=== PATIENT | male | born 1965 | race Caucasian/White ===

== ENCOUNTER 2016-09-19 11:34 | Inpatient (IN) ==
--- NOTE | 2016-09-18 20:51 | Discharge Summary ---
<Linsey White - Last Filed: 09/18/16 20:49> Date of Encounter: 09/18/16 - Discharge Diagnosis (1) Glenohumeral arthritis Priority: Primary Status: Acute Qualifiers: Laterality: left Qualified Code(s): M19.012 - Primary osteoarthritis, left shoulder - Discharge Medications Home Medications: OxyCODONE Immed Rel [Roxicodone 5 MG] 5 - 10 mg PO Q6HR PRN #40 tablet 09/18/16 [Rx] Aspirin Enteric Coated [Aspirin EC] 325 mg PO DAILY 09/19/16 [History] Fenofibrate Nanocrystallized [Tricor] 145 mg PO HS 09/19/16 [History] Niacin [Niacor] 500 mg PO BID 09/19/16 [History] Allergies/Adverse Reactions: Allergies No Known Allergies Allergy (Verified 09/19/16 12:31) Primary care physician: Camron Acevedo MD - Patient Status Disposition: Home, Self-Care Condition: Good - Discharge Instructions Follow Up With: Rohan Fraire MD [Partnered Physician] - 10/18/16 8:40 am Linsey White PAC [Physician Microbiology Lab Analyst] - 09/29/16 9:15 am Camron Acevedo MD [Primary Care Provider] - Additional Instructions: Discharge Instructions: Total Shoulder Please call [facility] ([phone]), your Primary Care Physician, or report to the Emergency Room if you have any of the following symptoms: Nausea, vomiting, fever greater that 101.5, swelling, chest pain, shortness of breath, increased pain/redness/drainage/odor for your incision site, numbness/ tingling, or any other concerning symptoms. ACTIVITY: Always keep your arm in the sling. Do not raise your arm away from your body. Do not use your arm to help with getting in or out of bed. No weight bearing permitted. Only perform those exercises given to you by your therapist. MEDICATIONS: Upon discharge resume your home medications. Take all the medications as prescribed. Take a stool softener if taking narcotic pain medications. Stool softeners are only effective if you drink enough fluids. Drink 6-8 glass of water or fluids a day, unless this is not allowed for another health problem. Despite using stool softeners, if you haven't had a bowel movement in 3 days, please switch to a gentle laxative. Gentle laxatives are sold over the counter. You should have a bowel movement within 24 hours, if not call the office. You will be discharged from the hospital with a prescription for pain medication. You are encouraged to decrease the use of narcotic pain medication as tolerated. Should you require a refill, please call the office. [facility] prescribes narcotic pain medication for only 4-6 weeks after surgery. If you require pain medication beyond this time period, you may be referred to your Primary Care Physician or to the Pain Clinic for further evaluation. Plan ahead for refills on pain medication as many narcotics either need to be picked up at the office or mailed. It is best to call 48-72 hours in advance of needing a prescription refill so you don't run out of medication. To help control the post-operative pain, you may take NSAIDs (Aleve,Advil, Motrin, ibuprofen, naprosyn) or Tylenol as prescribed on the bottle in addition to the pain medication. ANTICOAGULATION (blood thinners): Continue your Aspirin, Lovenox or Coumadin as prescribed to help prevent a blood clot in the leg or in the lungs. As long as your incision remains dry and you tolerate the NSAIDs (Aleve, Advil, Motrin, ibuprofen, naprosyn), it is OK to use the NSAIDS while you are taking your anticoagulation medication. Should your incision start to drain, stop the NSAID and contact our office. Common symptoms of blood clot in the legs include: localized pain, swelling, calf tenderness, redness or discoloration of the skin. Blood clot in the lung symptoms include: shortness of breath, rapid pulse, sweating, and chest pain that worsens with deep breathing, coughing up blood, lightheadedness, and feelings of anxiety. If you experience any of these symptoms notify your physician immediately, go to the emergency room, or if having trouble breathing , call 911. WOUND CARE: Leave the dressing on for 7 days. You may change the dressing if it becomes saturated greater than 50%. You can shower but not a tub bath or submerge your incision in water. Wash your hands with antibacterial soap, rinse and dry prior to any wound care. If you have jm the visiting nurse or rehab facility can remove the stapes 10-14 days after surgery and place steri -strips across the wound. Leave the steri-strips in place until they fall off on their won. You may let water from the shower run on top of the steri- stirips. If you do not have a visiting nurse or rehab facility, you will need to return to the office at 10-14 days for the jm to be removed. FOLLOW-UP: Please follow up with your surgeon in the orthopedic clinic, as scheduled - Hospital Course Hospital course: Mr. Collins is a 51 year old male - Time Spent with Patient Total time spent providing and/or coordinating discharge services: <Rohan Fraire - Last Filed: 09/20/16 06:34> Date of Encounter: 09/20/16 Time of Encounter: 06:33 - Discharge Diagnosis (1) Glenohumeral arthritis Priority: Primary Status: Acute Qualifiers: Laterality: left Qualified Code(s): M19.012 - Primary osteoarthritis, left shoulder (2) Obesity (BMI 30.0-34.9) Priority: Secondary Status: Chronic Primary care physician: Camron Acevedo MD - Patient Status Functional capacity at discharge: independent ambulation Overall status at discharge: patient is progressing back to baseline - Hospital Course Hospital course: Mr. Collins is a 51 year old male The patient had an uneventful postoperative course. They received antibiotics and physical therapy and were discharged in stable condition. There will follow -up in the office in 2 weeks. - Time Spent with Patient Total time spent providing and/or coordinating discharge services:
[2016-09-19] MEDS ORDERED: Famotidine 20 MG/2 ML VIAL IVP ONE (12:21)
--- NOTE | 2016-09-19 12:23 | History & Physical Report ---
Date of Encounter: 09/19/16 Time of Encounter: 12:23 24 Hour HP Update - Instructions Instructions: If the History and Physical is less than 30 days old and was completed prior to A.M. admission and or procedure and has NOT been updated on calendar day of procedure please complete this update prior to performing procedure. - Update Patient reports changes in Medical Condition: No Changes in assessment/condition: No Changes in Medication: No Preop tests/diagnostics Reviewed: Yes Surgery Remains Indicated: Yes Consent for Planned Operative Procedure(s) Verified: Yes - Pre-Operative Checklist Preoperative Checklist Indicated: No Prophylactic Antibiotic Ordered: Yes Is VTE Prophylaxis Indicated?: Yes
--- NOTE | 2016-09-19 12:23 | Anesthesia Evaluation PreOp ---
Date of Encounter: 09/19/16 Time of Encounter: 12:20 - Past History Planned Operation: Left Total Shoulder Replacement Cardiac History: Denies any Significant Hx, Other (Hx DVT) Pulmonary History: Denies Any Significant HX COMPUTING CONSULTANT History: Denies Any Significant HX Other Medical History: Other (Osteo arthritis) Anesthesia History: No Prior Anesthetic Complications Alcohol Use: none Drug use: none Medications and Allergies OxyCODONE Immed Rel [Roxicodone 5 MG] 5 - 10 mg PO Q6HR PRN #40 tablet 09/18/16 [Rx] Allergies No Known Allergies Allergy (Unverified 09/05/16 11:23) - Meds/Allergy Pre-op Review Medications Reviewed: Yes Allergies Reviewed: Yes Beta Blockers on Current Med List: No Anesthesia Results - Labs Laboratory Tests 09/05/16 09/05/16 11:23 11:23 Hgb 14.1 Hct 40.2 Plt Count 301 Sodium 140 Potassium 4.3 BUN 25 Creatinine 1.06 Anesthesia Exam O2 Sat Height 1.83 m Height 1.83 m Weight 108.862 kg Weight 108.862 kg O2 Sat by Pulse Oximetry 98 Vital Signs Temp Pulse Resp BP Pulse Ox 98.7 F 71 18 146/99 98 09/19/16 11:47 09/19/16 11:47 09/19/16 11:47 09/19/16 11:47 09/19/16 11:47 Height: 6'0 Weight: 240 lbs NPO (# of Hours): MN Pain Scale: 0 - HEENT Pupil (Motor): Pupils equal, EOMI Mallampati: II Teeth: Normal Oral Opening: Greater than 3 - COMPUTING CONSULTANT LOC: Oriented COMPUTING CONSULTANT Motor: Normal RUE, Normal LUE, Normal RLE, Normal LLE, Normal Face COMPUTING CONSULTANT Sensory: Normal: RUE, LUE, RLE, LLE, Face - Cardiac Rhythm: Regular Murmur: None JVD: No Carotid Bruit: No - Pulmonary Breath Sounds: bilateral Clear Respiratory Effort: Symmetrical Anesthesia Assess/Plan ASA Score: 2 Modified [place] Scale for Level of Consciousness: Cooperative, oriented, and tranquil Anesthetic Plan: General, Regional Monitoring Plan: Standard Monitors Recovery Plan: PACU (Discussed GA and RA, agrees to proceed)
[2016-09-19] MEDS ORDERED: Ringers Solution, Lactated 1,000 ML IVC SCH ×3 (12:30→16:23)
[2016-09-19] MEDS ORDERED: Albuterol 2.5 MG/3 ML NEBULIZER ONE (12:43)
[2016-09-19] MEDS ORDERED: *HR* Propofol 200 MG/20 ML VIAL IVP ONE (12:47)
[2016-09-19] MEDS ORDERED: *HR* FentaNYL (PF) 100 MCG/2 ML VIAL ONE (12:47)
[2016-09-19] MEDS ORDERED: *HR* Midazolam HCl 2 MG/2 ML VIAL ONE (12:47)
[2016-09-19] MEDS ORDERED: Lidocaine -MPF 2% 2 ML VIAL ONE (12:49)
[2016-09-19] MEDS ORDERED: Dexamethasone 4 MG/ML VIAL ONE (12:49)
[2016-09-19] MEDS ORDERED: Ondansetron 4 MG/2 ML VIAL ONE (12:49)
[2016-09-19] MEDS ORDERED: Lidocaine 1% 20 ML MDV ID ONE (12:57)
[2016-09-19] MEDS ORDERED: CeFAZolin Pre 2,000 MG/100 ML 2,000 MG/100 ML BAG IVPB ONE ×2 (12:57→13:14)
[2016-09-19] MEDS ORDERED: Bupivacaine/Clonidine Syringe 1 EACH SYRINGE ONE (13:06)
[2016-09-19] MEDS ORDERED: ROPIVACAINE HCL/PF 0.5% 30 ML VIAL ONE (13:07)
[2016-09-19] MEDS ORDERED: Tetracaine/PF 20 MG/2 ML AMPUL SPINA ONE (13:07)
[2016-09-19] MEDS ORDERED: *HR* HYDROmorphone (PF) 1 MG/ML SYRINGE IVP PRN ×2 (13:10→16:23)
--- NOTE | 2016-09-19 14:21 | Anesthesia Procedures ---
Date of Encounter: 09/19/16 Time of Encounter: 13:50 Procedures: Anesthesia - Nerve Block Procedure Date: 09/19/16 Time: 13:50 Checklist: Correct Patient Identifier, Correct procedure, History checked Correct side: Left Blood Thinner: No Monitor Applied: EKG, BP, Pulse Oximetry Supplemental Oxygen via Nasal Cannula (L/min): 2 Sedation: Versed (mg): 2 Sedation: Fentanyl (mcg): 1 Indication: Post Op Analgesia Pre-op Neuro Deficits: No Block Type: Interscalene, Other (superficial cervical plexus) Catheter placed: No Sterile Technique: Yes Ultrasound used: Yes Anatomy identified: Yes Visual spread of Local: Yes Nerve Stimulator Range: 0.2 - 0.4 mA Blood on Needle Aspiration: No Smooth Injection of Local: Yes Pain with Injection of Local: No Prep: Chlorhexadine Needle: 22 x 50 mm Stimuplex Local: Tetracaine, Other (2 cc of lidocaine) Number of Attempts: 1 Vitals: VSS
[2016-09-19] MEDS ORDERED: *HR* Succinylcholine 200 MG/10 ML VIAL IVP ONE (14:41)
--- NOTE | 2016-09-19 14:54 | Orthopedic Operative Note ---
Date of procedure: 09/19/16 Pre-op diagnosis: Left shoulder arthritis Post-op diagnosis: same Procedure: Procedure: Left Total Shoulder Replacement biceps tenodesis Estimated blood loss: 100 cc Hardware:Arthrex glenoid: Large humeral stem: 8 humeral head 54 x 19 Exam Under anesthesia: Restriction all ranges Procedural Notes: Grade 4 arthritic changes humeral head glenoid socket Operative procedure: The patient was brought to the operating room and placed on the operating room table. After general anesthesia was administered the operative shoulder was examined. Findings were noted. The patient was placed in the modified beachchair position. All pressure points were padded appropriately. And the head was stabilized in the neutral position. The operative extremity was prepped and draped in the sterile surgical fashion. The patient received IV antibiotics prior to skin incision. A standard deltopectoral approach was made to the operative shoulder. Incision was made to the skin and subcutaneous tissue,hemo stasis was obtained with Bovie cautery. Using careful blunt dissection the cephalic vein was identified and mobilized medially. The deltopectoral interval was developed and the clavipectoral fascia was incised. The subscap was released off the lesser tuberosity and tagged with #2 FiberWire suture. The humerus was dislocated osteophytes were present were removed and the humeral cut was made along the anatomic neck. He should noted to have grade 4 arthritic changes humeral head. Anterior and posterior Bankart retractors were placed to expose the glenoid. The patient had grade 4 arthritic changes glenoid socket. The glenoid guide was seated and the centering hole was made. It was reamed with the appropriate large reamer. The finishing guide was seated superior and inferior drill holes were placed. Patient punch was seated large trial was seated had good fit and fixation. The large glenoid component was cemented in place held with digital pressure until cemented hardened. A good fit and fixation. The humerus was redislocated and prepared with the diaphyseal reamers, followed by a broaching process up to the appropriate size 8 in the patient's anatomic version. Trial components were removed and drill holes were placed in the bicipital groove x 2. The apex stem was filled with a #5 FiberWire suture through the holes in the stem the 2 lateral fin holes were passed through the drill holes in the lesser tuberosity and passed through the biceps tendon. The 8 component was impacted in place the neck angle and version were locked in place with the inferior and superior screws the trial with the 4 x 19 head was seated and secured in the appropriate position shoulder had good motion and stability. Trial head was removed real head was seated and secured subscap was repaired to the humerus as well as the humeral stem incorporating the biceps tendon for biceps tenodesis and a subscap repair. The deltopectoral interval was closed with a running #1 PDS suture, subcutaneous tissue was irrigated and closed with 0 PDS suture, the skin was closed with Dermabond. The patient was placed in a sterile dressing, abduction brace and extubated. The patient was then transferred to the recovery room in stable condition. Anesthesia: GETShirley Surgeon: Rohan Fraire Automotive Lot Attendant: Linsey White Condition: stable Disposition: PACU
[2016-09-19] MEDS ORDERED: Ketorolac 30 MG/ML VIAL ONE (15:14)
--- NOTE | 2016-09-19 15:55 | Anesthesia Evaluation Post Op ---
Date of Encounter: 09/19/16 Time of Encounter: 15:54 - Vital Signs Vital Signs: vss - Lungs Lungs: Clear Ascult./Percussion - Airway Airway: Non-obstructed - Cardiovascular Baseline Rhythm - Mental Status Mental Status: Alert & Oriented, Answers Appropriately - Pain Pain Scale used: Maxim (Faces) - Nausea Vomiting Nausea Vomiting: Not Present - Hydration Hydration: Tolerates oral liquids - Discharge PostOp Status: Transfer Patient to floor
[2016-09-19] MEDS ORDERED: Temazepam 15 MG CAPSULE PO PRN (16:23)
[2016-09-19] MEDS ORDERED: Naloxone 0.4 MG/ML INJ IVP PRN (16:23)
[2016-09-19] MEDS ORDERED: Ondansetron 4 MG/2 ML VIAL IVP PRN (16:23)
[2016-09-19] MEDS ORDERED: Acetaminophen 325 MG TABLET PO PRN (16:23)
[2016-09-19] MEDS ORDERED: *HR* OxyCODONE Immed Rel 5 MG TABLET PO PRN (16:23)
[2016-09-19] MEDS ORDERED: Sennosides 8.6 MG TABLET PO PRN (16:23)
[2016-09-19] MEDS ORDERED: MOM Conc 10 ML UD.LIQ PO PRN (16:23)
[2016-09-19 16:25] LABS: Hematocrit 33.2 % (37.5-50.1); Hemoglobin 12.3 g/dL (12.9-16.9)
[2016-09-19] MEDS: *HR* OxyCODONE Immed Rel 5 MG TABLET PO PRN ×2 (16:59→23:50)
[2016-09-19] MEDS: *HR* Enoxaparin 30 MG/0.3 ML SYRINGE SQ SCH (16:59)
[2016-09-19] MEDS: ceFAZolin 2,000 MG in D5% in Water 100 ML IVPB SCH (17:37)
[2016-09-19] MEDS ORDERED: *HR* Enoxaparin 30 MG/0.3 ML SYRINGE SQ SCH (18:00)
[2016-09-19] MEDS ORDERED: Fenofibrate 54 MG TABLET PO SCH (21:00)
[2016-09-19] MEDS: Niacin (24 HR) 500 MG TAB.ER.24H PO SCH (21:07)
[2016-09-20] MEDS: *HR* Enoxaparin 30 MG/0.3 ML SYRINGE SQ SCH (05:05)
[2016-09-20] MEDS: ceFAZolin 2,000 MG in D5% in Water 100 ML IVPB SCH (05:06)
[2016-09-20] MEDS: *HR* OxyCODONE Immed Rel 5 MG TABLET PO PRN ×2 (05:06→09:01)
--- NOTE | 2016-09-20 06:35 | Orthopedics Progress Note ---
Date of Encounter: 09/20/16 Time of Encounter: 06:34 - Assessment and Plan (1) Glenohumeral arthritis Current Visit: Yes Status: Acute Qualifiers: Laterality: left Qualified Code(s): M19.012 - Primary osteoarthritis, left shoulder (2) Obesity (BMI 30.0-34.9) Current Visit: Yes Status: Chronic Subjective Interval history: Patient was seen this morning doing well without complaints. Afebrile vital signs stable. Operative extremity: Neurovascularly intact Dressing clean dry and intact Calves nontender Assessment and plan: Continue with postoperative care Discharged today Objective Vital signs: Vital Signs Temp Pulse Resp BP Pulse Ox 09/20/16 04:14 98 F 82 17 115/73 94 L 09/19/16 23:22 97.8 F 72 16 130/86 93 L 09/19/16 20:00 98.0 F 80 17 151/98 95 09/19/16 19:32 97.9 F 78 17 156/103 94 L 09/19/16 17:02 97.7 F 63 15 131/81 95 09/19/16 16:05 98 F 66 14 129/85 94 L 09/19/16 15:48 98.1 F 66 18 118/83 94 L 09/19/16 15:38 98.2 F 66 18 129/83 94 L 09/19/16 15:28 69 18 131/78 93 L 09/19/16 15:18 69 16 128/85 99 09/19/16 15:08 97.7 F 80 16 138/89 98 09/19/16 13:52 70 141/94 97 09/19/16 13:30 67 102/86 99 09/19/16 13:03 98.7 F 71 18 146/99 98 09/19/16 11:47 98.7 F 71 18 146/99 98 Intake and Output 09/19/16 09/19/16 09/20/16 15:59 23:59 07:59 Intake Total 100 / 100 100 / 100 Output Total 100 / 100 Balance 0 / 0 100 / 100 Intake: IV Fluids 100 / 100 100 / 100 Ancef 2,000 MG In 100 / 100 Dextrose 5% 100 ML @ 200 mls/hr IVPB Q8H [facility] Rx#: [id number] Ancef Premix 2,000 MG/100 100 / 100 ML 2,000 mg In 100 ml @ 200 mls/hr IVPB PREOP ONE Rx#:[id number] Output: Estimated Blood Loss 100 / 100 Other: # Voids 1 Weight 108.862 kg - Labs CBC & BMP: 09/19/16 15:38 Labs: Abnormal lab results Hgb 12.3 g/dL (12.9-16.9) L 09/19/16 15:38 Hct 33.2 % (37.5-50.1) L 09/19/16 15:38 - VTE Documentation of Mechanical Device: Venous foot pump, device Consult Discharge Plan - Plan Additional Instructions: Discharge Instructions: Total Shoulder Please call [facility] ([phone]), your Primary Care Physician, or report to the Emergency Room if you have any of the following symptoms: Nausea, vomiting, fever greater that 101.5, swelling, chest pain, shortness of breath, increased pain/redness/drainage/odor for your incision site, numbness/ tingling, or any other concerning symptoms. ACTIVITY: Always keep your arm in the sling. Do not raise your arm away from your body. Do not use your arm to help with getting in or out of bed. No weight bearing permitted. Only perform those exercises given to you by your therapist. MEDICATIONS: Upon discharge resume your home medications. Take all the medications as prescribed. Take a stool softener if taking narcotic pain medications. Stool softeners are only effective if you drink enough fluids. Drink 6-8 glass of water or fluids a day, unless this is not allowed for another health problem. Despite using stool softeners, if you haven't had a bowel movement in 3 days, please switch to a gentle laxative. Gentle laxatives are sold over the counter. You should have a bowel movement within 24 hours, if not call the office. You will be discharged from the hospital with a prescription for pain medication. You are encouraged to decrease the use of narcotic pain medication as tolerated. Should you require a refill, please call the office. [facility] prescribes narcotic pain medication for only 4-6 weeks after surgery. If you require pain medication beyond this time period, you may be referred to your Primary Care Physician or to the Pain Clinic for further evaluation. Plan ahead for refills on pain medication as many narcotics either need to be picked up at the office or mailed. It is best to call 48-72 hours in advance of needing a prescription refill so you don't run out of medication. To help control the post-operative pain, you may take NSAIDs (Aleve,Advil, Motrin, ibuprofen, naprosyn) or Tylenol as prescribed on the bottle in addition to the pain medication. ANTICOAGULATION (blood thinners): Continue your Aspirin, Lovenox or Coumadin as prescribed to help prevent a blood clot in the leg or in the lungs. As long as your incision remains dry and you tolerate the NSAIDs (Aleve, Advil, Motrin, ibuprofen, naprosyn), it is OK to use the NSAIDS while you are taking your anticoagulation medication. Should your incision start to drain, stop the NSAID and contact our office. Common symptoms of blood clot in the legs include: localized pain, swelling, calf tenderness, redness or discoloration of the skin. Blood clot in the lung symptoms include: shortness of breath, rapid pulse, sweating, and chest pain that worsens with deep breathing, coughing up blood, lightheadedness, and feelings of anxiety. If you experience any of these symptoms notify your physician immediately, go to the emergency room, or if having trouble breathing , call 911. WOUND CARE: Leave the dressing on for 7 days. You may change the dressing if it becomes saturated greater than 50%. You can shower but not a tub bath or submerge your incision in water. Wash your hands with antibacterial soap, rinse and dry prior to any wound care. If you have jm the visiting nurse or rehab facility can remove the stapes 10-14 days after surgery and place steri -strips across the wound. Leave the steri-strips in place until they fall off on their won. You may let water from the shower run on top of the steri- stirips. If you do not have a visiting nurse or rehab facility, you will need to return to the office at 10-14 days for the jm to be removed. FOLLOW-UP: Please follow up with your surgeon in the orthopedic clinic, as scheduled Referrals: Rohan Fraire MD [Partnered Physician] - 10/18/16 8:40 am Linsey White PAC [Physician Sweep Molder] - 09/29/16 9:15 am Camron Acevedo MD [Primary Care Provider] -
[2016-09-20 07:48] VITALS: BP 115/76
[2016-09-20] MEDS ORDERED: Aspirin Enteric Coated 325 MG Tablet PO SCH (09:00)
[2016-09-20] MEDS: Niacin (24 HR) 500 MG TAB.ER.24H PO SCH (09:01)
[2016-09-20 09:05] LABS: Hematocrit 37.3 % (37.5-50.1); Hemoglobin 13.3 g/dL (12.9-16.9)
== END 2016-09-20 09:38 | disposition home or self-care (01) | DRG 483 ==
LOC: SAMDAY 11:34 → 3NENU 16:17
PROVIDERS: ADMIT Orthopaedic Surgery; ATTEND Orthopaedic Surgery